=== PATIENT | female | born 1995 | race African-American/Black ===

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

== ENCOUNTER 2017-05-06 20:06 | Emergency (ER) | payer MEDICAID, OTHER ==
[~2017-05-06 20:06] MED LIST changes: +IBUP1TAB7 PO; -IBUP800T23 PO; +PRED20 PO
[2017-05-06 20:07] VITALS: BP 136/70; PULSE 70; RESP 15; TEMP 98.1; O2SAT 99
[2017-05-06] MEDS ORDERED: LIDOCAINE HCL 1% 50 ML VIAL IM ONE (20:30)
[2017-05-06] MEDS ORDERED: cefTRIAXone 250 MG VIAL IM ONE (20:30)
[2017-05-06] MEDS ORDERED: AZITHROMYCIN PWD FOR SUSP 1 GM PACKET PO ONE (20:30)
--- NOTE | 2017-05-06 21:10 | PD ---
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 States she is concerned for STDs. She denies any abdominal pain, pelvic pain, urgency, frequency, or flank pain. Denies nausea, vomiting, fever, chills. She only has one sexual partner. Last menstrual cycle was one week ago. States she has extreme tenderness to the labia majora especially during urination and during sex. She has never been . PFSH Past Medical History Diminished Hearing: No Medical other: Yes (H. PYLORI) Immunizations Current: Yes ?: Not LMP: 04/28/17 : 0 Past Surgical History Surgical History: No Previous Surgery Social History Alcohol Use: Yes (OCCASSIONALLY) Tobacco Use: No Substance Use: No Allergies-Medications (Allergen,Severity, Reaction): Coded Allergies: No Known Allergies (Verified Adverse Reaction, Unknown, 05/06/17) Reported Meds & Prescriptions Reported Meds & Active Scripts Active Diflucan (Fluconazole) 150 Mg Tab 150 Mg PO ONCE Prednisone 20 Mg Tab 40 Mg PO DAILY Take 40 mg (2 tablets) daily for 5 days Ibuprofen 800 Mg Tab 800 Mg PO Q8H PRN Flagyl (Metronidazole) 500 Mg Tab 500 Mg PO BID 7 Days Doxycycline Hyclate 100 Mg Cap 100 Mg PO BID Review of Systems Except as stated in HPI: all other systems reviewed are Neg Physical Exam Narrative GENERAL: Well-nourished, well-developed female in acute distress. Afebrile. Ambulatory. Resting comfortably in bed. SKIN: Focused skin assessment warm/dry. HEAD: Normocephalic. EYES: No scleral icterus. No injection or drainage. NECK: Supple, trachea midline. No JVD or lymphadenopathy. CARDIOVASCULAR: Regular rate and rhythm without murmurs, gallops, or rubs. RESPIRATORY: Breath sounds equal bilaterally. No accessory muscle use. GASTROINTESTINAL: Abdomen soft, non-tender, nondistended. GENITOURINARY: Normal external genitalia with scattered, tender 1-2 mm ulcerations. Vaginal vault without blood or drainage. Cervical os was closed without drainage. No cervical motion tenderness. Uterus nontender and nonenlarged. Bilateral adnexa nontender without masses. Data Data Last Documented VS Vital Signs Date Time Temp Pulse Resp B/P (MAP) Pulse Ox O2 Delivery O2 Flow Rate FiO2 05/06/17 22:15 05/06/17 20:07 98.1 70 15 99 Room Air Orders Orders Gc And Chlamydia Pcr (05/06/17 20:24) Wet Prep Profile (05/06/17 20:24) Azithromycin Powd Pack (Zithromax Powd P (05/06/17 20:30) Ceftriaxone Inj (Rocephin Inj) (05/06/17 20:30) Lidocaine 1% Inj (50 Ml) (Xylocaine 1% I (05/06/17 20:30) Ed Urine Pregnancytest Poc (05/06/17 20:24) Urinalysis - C+S If Indicated (05/06/17 20:24) Fluconazole (Diflucan) (05/06/17 22:00) Ed Discharge Order (05/06/17 21:58) Labs Laboratory Tests Test 05/06/17 20:30 05/06/17 21:15 Urine Color YELLOW Urine Turbidity CLEAR Urine pH 6.0 Urine Specific [place] 1.020 Urine Protein TRACE mg/dL Urine Glucose (UA) NEG mg/dL Urine Ketones NEG mg/dL Urine Occult Blood NEG Urine Nitrite NEG Urine Bilirubin NEG Urine Urobilinogen LESS THAN 2.0 MG/DL Urine Leukocyte Esterase LARGE Urine RBC 1 /hpf Urine WBC LESS THAN 1 /hpf Urine Squamous Epithelial Cells 3 /hpf Urine Amorphous Sediment RARE Microscopic Urinalysis Comment CULT NOT INDICATED Clue Cells (Wet Prep) NONE SEEN Vaginal Trichomonas (Wet Prep) NONE SEEN Vaginal Yeast (Wet Prep) PRESENT Chlamydia trachomatis DNA (PCR) NOT DETECTED Neisseria gonorrhoeae DNA (PCR) NOT DETECTED MDM Medical Decision Making Medical Screen Exam Complete: Yes Emergency Medical Condition: Yes Medical Record Reviewed: Yes Differential Diagnosis STD, candidiasis, PID, UTI Narrative Course 22-year-old female presents to the emergency room for evaluation of dysuria and vaginal discharge for the past 2 weeks. She is requesting to be treated for STDs. Has any pelvic pain or abdominal pain. No fever, chills, nausea, or vomiting. Physical exam reveals soft, nontender abdomen. Vital signs stable. Pelvic exam reveals large amount of purulent drainage that is green, thick. She has some ulcerations and peroneum just below the vagina. Patient was informed that she may have herpes and will need to follow up with health department for confirmation testing. Patient treated empirically for gonorrhea and chlamydia with azithromycin and ceftriaxone. Wet prep and UA are ordered and pending. Patient signed out to nighttime provider[facility] Fluconazole (Diflucan) 150 Mg Tab 150 MG PO ONCE for Infection, #1 TAB 0 Refills Prov: Mason Saleh MD 05/06/17 Disposition: 01 DISCHARGE HOME Condition: Stable Sandra Faulkner May 06, 2017 21:09
[2017-05-06 21:50] LABS: BLOOD, URINE NEG (NEG); COMMENT (UR) CULT NOT INDICATED; CULTURE IF INDICATED CULT NOT INDICATED; GLUCOSE,URINE NEG (NEG); KETONE, URINE NEG (NEG); NITRITE,URINE NEG (NEG); SQUAMOUS EPITHELIAL CELL URINE 3 /hpf (0-5); URINE COLOR YELLOW (YELLW/STRAW)
[2017-05-06] MEDS ORDERED: DIFL150T PO (21:58)
--- NOTE | 2017-05-06 21:58 | PD ---
Data Data Last Documented VS Vital Signs Date Time Temp Pulse Resp B/P (MAP) Pulse Ox O2 Delivery O2 Flow Rate FiO2 05/06/17 20:07 98.1 70 15 136/70 (92) 99 Room Air Orders Orders Gc And Chlamydia Pcr (05/06/17 20:24) Wet Prep Profile (05/06/17 20:24) Azithromycin Powd Pack (Zithromax Powd P (05/06/17 20:30) Ceftriaxone Inj (Rocephin Inj) (05/06/17 20:30) Lidocaine 1% Inj (50 Ml) (Xylocaine 1% I (05/06/17 20:30) Ed Urine Pregnancytest Poc (05/06/17 20:24) Urinalysis - C+S If Indicated (05/06/17 20:24) Fluconazole (Diflucan) (05/06/17 22:00) Labs Laboratory Tests Test 05/06/17 20:30 05/06/17 21:15 Urine Color YELLOW Urine Turbidity CLEAR Urine pH 6.0 Urine Specific [place] 1.020 Urine Protein TRACE mg/dL Urine Glucose (UA) NEG mg/dL Urine Ketones NEG mg/dL Urine Occult Blood NEG Urine Nitrite NEG Urine Bilirubin NEG Urine Urobilinogen LESS THAN 2.0 MG/DL Urine Leukocyte Esterase LARGE Urine RBC 1 /hpf Urine WBC LESS THAN 1 /hpf Urine Squamous Epithelial Cells 3 /hpf Urine Amorphous Sediment RARE Microscopic Urinalysis Comment CULT NOT INDICATED Clue Cells (Wet Prep) NONE SEEN Vaginal Trichomonas (Wet Prep) NONE SEEN Vaginal Yeast (Wet Prep) PRESENT MDM Supervised Visit with WILSON: Yes Narrative Course I, Dr. Saleh, have reviewed the advance practice practitioner's documentation and am in agreement, met with the patient face to face, made the diagnosis, and the medical decision making was done by me. See her note for further details. Patient was empirically treated for gonorrhea and chlamydia. Wet prep is positive for yeast. She will be given a dose of Diflucan here and a prescription for a second dose in 72 hours. She is overall very comfortable. She is stable for discharge home with outpatient follow-up. She was informed on when to return to the emergency department. She verbalizes understanding and agreement with plan. Diagnosis Primary Impression: Pelvic inflammatory disease Additional Impression: Vulvovaginal candidiasis Referrals: [facility]. Scripts Fluconazole (Diflucan) 150 Mg Tab 150 MG PO ONCE for Infection, #1 TAB 0 Refills Prov: Mason Saleh MD 05/06/17 Disposition: 01 DISCHARGE HOME Condition: Stable Mason Saleh MD May 06, 2017 21:58
[2017-05-06] MEDS ORDERED: FLUCONAZOLE 100 MG TAB PO ONE (22:00)
[2017-05-07 05:57] LABS: CHLAMYDIA PCR NOT DETECTED (NOT DETECT); NEISSERIA PCR NOT DETECTED (NOT DETECT)
== END 2017-05-06 22:10 | disposition home or self-care (01) ==
LOC: NEPD 20:06
DX: N73.9 Female pelvic inflammatory disease, unspecified (principal); B37.3 Candidiasis of vulva and vagina
CPT/HCPCS: 81001; 84703; 87210; 87491; 87591; 96372; 99284; J0696